=== PATIENT | male | born 1960 | race Caucasian/White ===

== ENCOUNTER → 2016-02-08 | Outpatient (CLI) | payer BC ==
[~2016-02-08] MED LIST: ASPIRIN325 M1 PO; BUFFERIN PO; CARVEDILOL 25MG25 MG PO; CLOPIDOGREL75 MG PO; FLONASE 50 MCG16 GM; GLIPIZIDE 5MG TA5 MG PO; LEVOTHYROXINE0.1 MG PO; LISINOPRIL 20MG20 MG PO; LISINOPRIL2.5 MG PO; LOSARTAN POTAS100 MG PO; METFORMIN500 MG PO; OMEPRAZOLE40 MG PO; PIOGLITAZONE HC30 MG PO; PRAVACHOL 40MG40 MG PO; QUALITY CHOICE PO; ZITHROMAX Z PA250 MG PO
--- NOTE | 2016-02-08 13:52 | RADIOLOGY REPORT PS360 ---
[facility] ([facility]) HISTORY: Right upper quadrant pain with nausea and vomiting, abnormal ultrasound RUQ PAIN DOSE: 8.47 mCi technetium Choletec 1.9 mcg of CCK. No pain reported with CCK infusion FINDINGS: Homogeneous activity is present within the hepatic parenchyma. Activity is present in the gallbladder by 10 minutes. Activity is present in the small bowel by 45 minutes. The gallbladder ejection fraction is calculated to be 99% The patient did not report pain or other symptoms during CCK infusion. IMPRESSION: Unremarkable hepatobiliary scan and gallbladder ejection fraction. No evidence of common or cystic duct obstruction with normal gallbladder ejection fraction
== END ==
LOC: RAD 08:30
DX: R10.11 Right upper quadrant pain (principal)
CPT/HCPCS: A9537; J2805

== ENCOUNTER 2016-04-11 16:33 | Emergency (ER) | payer BC ==
[~2016-04-11] VITALS: Ht 170.2 cm; Wt 90.7 kg
[~2016-04-11 16:33] MED LIST changes: -ASPIRIN325 M1 PO; -FLONASE 50 MCG16 GM; -ZITHROMAX Z PA250 MG PO
[2016-04-11] MEDS ORDERED: ASPIRIN325 M1 PO (16:42)
[2016-04-11] MEDS ORDERED: FLONASE 50 MCG16 GM (17:15)
[2016-04-11] MEDS ORDERED: ZITHROMAX Z PA250 MG PO (17:15)
--- NOTE | 2016-04-11 17:16 | Urgent Treatment Center Report ---
History of Present Issue Date/Time Seen by Provider 04/11/16 1650 Visit Reason Pt arrived:Walked Presenting Problem:PT STATES HE HAS BODY ACHES AND CHILLS, HEADACHE AND FEELS TERRIBLE. NASAL DRAINAGE. Location if Accident: Onset of symptoms date/time:/ or onset unknown for:MEDICAL HX UNKNOWN Have you (or family members/close friends) recently traveled outside the [place]? N If Yes, where/when: Have you had exposure to infectious disease within the past month? TB? Other? Specify: Patient states that he has not been feeling well having chills body aches and flu like symptoms. Having pain and pressure above his eyes and thinks he may have a sinus infection too. ALLERGIES Coded Allergies: No Known Allergies (01/12/16) Home Medications Reported Medications PIOGLITAZONE HCL (Pioglitazone Hcl 30MG Tablet) 30 MG PO DAILY Losartan Potassium (Losartan 100MG) 25 MG PO DAILY Omeprazole (Omeprazole 40MG) 40 MG PO DAILY CLOPIDOGREL BISULFATE (Clopidogrel 75MG) 75 MG PO DAILY LISINOPRIL (Lisinopril) 20 MG PO DAILY Glipizide (Glipizide 5MG) 5 MG PO DAILY LEVOTHYROXINE SOD (Synthroid) 25 MCG PO DAILY Carvedilol (Carvedilol 25MG) 25 MG PO BID PRAVASTATIN SODIUM (Pravastatin Sodium) 40 MG PO QHS LISINOPRIL (Lisinopril) 2.5 MG PO DAILY #30 TAB LISINOPRIL (Lisinopril) 2.5 MG PO DAILY #30 TAB Asa/Ca Carbonate/Mg Carbonat (Bufferin) 325 MG PO Metformin HCL (Metformin) 500 MG PO MULTIVIT WITH CALCIUM,IRON,MIN (Maximum Daily Multivitamin) 1 TAB PO Aspirin 325 MG PO DAILY History Medical History General CAD? No Angina: Yes [place]: Yes Hypertension? Yes Hyperlipidemia? Yes CHF? Yes DVT? No PE? No COPD? No Asthma? No Anemia? No GERD? No Gastric ulcers? No GI Bleed? No Hernia? No Thyroid Problems? No Hypothyroidism? No CVA? No Seizures? No Diabetes? Yes Insulin Dependent: No Insulin Pump: No Home FSBS? Yes Renal Insuffiency? No UTI? No Stones? No BPH? No GB Disease: No Nephritic Syndrome? No Asplenia? No Hepatitis? No Sickle Cell Disease? No Arthritis? No Migraines? No Cataracts? No Glaucoma? No MRSA? No HIV? No TB? No Anxiety? No Depression? No Cancer? No More? No Immunization HX DT/Tetanus 1-4 Years Ago Flu 2013-FSN Pneumonia Received In Past Surgical Hx Previous Surgery?Y CARDIAC STENTS X7 COLONOSCOPY DEFIBRILLATOR Family History Family HX Diabetes Yes CAD Yes Hypertension Yes Hyperlipidemia Yes Cancer Yes TB Yes Social History Smoking Hx Smoker: Never Smoker Tobacco: No Alcohol Alcohol: No Review of Systems All Other Systems Reviewed and Negative ENT nose discharge, nose congestion, throat pain. Respiratory cough Physical Exam Vital Signs Vital Signs Date Time Temp Pulse Resp B/P Pulse O2 O2 Flow FiO2 Ox Delivery Rate 04/11 1639 97.6 77 20 164/80 99 General Appearance Over all appears ill, swollen around eyes, Ear, Nose, Throat sinus pain/drainage, nasal congestion, throat slightly red, irritated Respiratory Status Yes: trachea midline, chest symmetrical, non tender chest. No: respiratory distress. 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 No Results/Orders Laboratory Tests 04/11/16 1647: Influenza Type A Ag NOT DETECTED, Influenza Type B Ag NOT DETECTED Orders Procedure Date/time Status [facility] FLU A,B 04/11 164 Complete Departure Departure Time of Disposition 1714 Disposition DC Home or Self Care(routine) Clinical Impression Primary Impression: Sinusitis Qualifiers: Sinusitis location: frontal Chronicity: unspecified Qualified Code: J32.1 - Chronic frontal sinusitis Condition STABLE Referrals ANJUM STALEY (Family) Patient Instructions DI for Sinusitis, Sinus Headache, Sinusitis Additional Instructions Drink plenty of fluids Take Medication as prescribed Follow up with family doctor Return if needed Discharge Counseling Counseled pt/family regarding diagnosis, test results, medications/RX, home care, follow up needs Prescriptions Current Visit Scripts Azithromycin (Zithromycin (Z-AARTI) 250MG Tab) 250 MG PO DAILY #6 TAB TAKE TWO (2) TABLETS ON DAY 1, THEN ONE (1) TABLET DAY #2 THRU #5 Fluticasone Propionate (Flonase 50 Mcg Nasal [place]) 2 SPRAY NA DAILY #1 BOT at 3319
[2016-04-11 17:19] VITALS: BP 164/80
== END 2016-04-11 17:19 | disposition home or self-care (01) ==
LOC: UTC 16:33
DX: J32.1 Chronic frontal sinusitis (principal); I10 Essential (primary) hypertension; E11.9 Type 2 diabetes mellitus without complications

== ENCOUNTER 2016-04-24 17:57 | Emergency (ER) | payer BC ==
[~2016-04-24] VITALS: Ht 170.2 cm; Wt 90.7 kg
[~2016-04-24 17:57] MED LIST changes: +ASPIRIN325 M1 PO; +FLONASE 50 MCG16 GM; +ZITHROMAX Z PA250 MG PO
--- NOTE | 2016-04-24 19:50 | Urgent Treatment Center Report ---
History of Present Issue Date/Time Seen by Provider 04/24/161935 Visit Reason Pt arrived:Walked Presenting Problem:PT C/O DIARRHEA SINCE SUNDAY THAT HAS LEFT HIM FEELING WEAK. PT STATES THAT HE WAS HAVING SOME VOMITING SUN BUT NONE NOW Location if Accident: Onset of symptoms date/time:/ or onset unknown for:MEDICAL HX UNKNOWN Have you (or family members/close friends) recently traveled outside the [place]? N If Yes, where/when: Have you had exposure to infectious disease within the past month? TB? Other? Specify: c/o continued diarrhea since Sunday, 3 days now. Started w/ N/V on Sunday then diarrhea started. N/V resolved within 24 hours. Fever and chills initially as well but that too resolved. Abdominal cramping prior to BMs but otherwise, no abdominal pain. Diarrhea "every 5 minutes", watery and eventually clear. pepto yesterday didn't help. Asked pharmacist and they recommended immodium. Took that yesterday and this morning. Frequency has slowed down "and getting brow color back to it". Abdominal cramping improving. Drinking water "a bottle each time I have poop" but hasn't been eating much. Hungry today. Ate hamburger "and kept it down". Feeling slightly weak today "but my mouth is wet and I have been checking my skin and it is good". No known sick contacts. Source patient Exam Limitations no limitations ALLERGIES Coded Allergies: No Known Allergies (04/24/16) Home Medications Active Scripts Azithromycin (Zithromycin (Z-AARTI) 250MG Tab) 250 MG PO DAILY #6 TAB Prov: 04/11/16 Fluticasone Propionate (Flonase 50 Mcg Nasal [place]) 2 SPRAY NA DAILY #1 BOT Prov: 04/11/16 Reported Medications PIOGLITAZONE HCL (Pioglitazone Hcl 30MG Tablet) 30 MG PO DAILY Losartan Potassium (Losartan 100MG) 25 MG PO DAILY Omeprazole (Omeprazole 40MG) 40 MG PO DAILY CLOPIDOGREL BISULFATE (Clopidogrel 75MG) 75 MG PO DAILY LISINOPRIL (Lisinopril) 20 MG PO DAILY Glipizide (Glipizide 5MG) 5 MG PO DAILY LEVOTHYROXINE SOD (Synthroid) 25 MCG PO DAILY Carvedilol (Carvedilol 25MG) 25 MG PO BID PRAVASTATIN SODIUM (Pravastatin Sodium) 40 MG PO QHS LISINOPRIL (Lisinopril) 2.5 MG PO DAILY #30 TAB LISINOPRIL (Lisinopril) 2.5 MG PO DAILY #30 TAB Asa/Ca Carbonate/Mg Carbonat (Bufferin) 325 MG PO Metformin HCL (Metformin) 500 MG PO MULTIVIT WITH CALCIUM,IRON,MIN (Maximum Daily Multivitamin) 1 TAB PO Aspirin 325 MG PO DAILY History Medical History General CAD? No Angina: Yes [place]: Yes Hypertension? Yes Hyperlipidemia? Yes CHF? Yes DVT? No PE? No COPD? No Asthma? No Anemia? No GERD? No Gastric ulcers? No GI Bleed? No Hernia? No Thyroid Problems? No Hypothyroidism? No CVA? No Seizures? No Diabetes? Yes Insulin Dependent: No Insulin Pump: No Home FSBS? Yes Renal Insuffiency? No UTI? No Stones? No BPH? No GB Disease: No Nephritic Syndrome? No Asplenia? No Hepatitis? No Sickle Cell Disease? No Arthritis? No Migraines? No Cataracts? No Glaucoma? No MRSA? No HIV? No TB? No Anxiety? No Depression? No Cancer? No More? No Immunization HX DT/Tetanus 1-4 Years Ago Flu 2013-15FSN Pneumonia Received In Past Surgical Hx Previous Surgery?Y CARDIAC STENTS X7 COLONOSCOPY DEFIBRILLATOR Family History Family HX Diabetes Yes CAD Yes Hypertension Yes Hyperlipidemia Yes Cancer Yes TB Yes Social History Smoking Hx Smoker: Former Smoker Tobacco: Yes Type Cigarettes Alcohol Alcohol: No Review of Systems All Other Systems Reviewed and Negative Constitutional see HPI ENT denies: throat pain. Respiratory denies shortness of breath Cardiovascular denies chest pain, denies palpitations Gastrointestinal see HPI Genitourinary denies: dysuria. Musculoskeletal denies other (cramping) Skin denies change in color, denies dryness Psychiatric/Neurological denies headache Physical Exam Vital Signs Vital Signs Date Time Temp Pulse Resp B/P Pulse O2 O2 Flow FiO2 Ox Delivery Rate 04/24 1814 97.9 96 20 126/79 100 General Appearance normal appearance, no apparent distress Ear, Nose, Throat normal ENT inspection Respiratory Status No: respiratory distress. Lung Sounds anterior: lungs clear. posterior: lungs clear. bilateral: lungs clear. Cardiovascular regular rate/rhythm, no murmur Gastrointestinal non tender, soft, no organomegaly, abnormal bowel sounds ( hyperactive), protuberant Back no CVA tenderness Strength 5 Upper Ext (L), 5 Upper Ext (R), 5 Lower Ext (L), 5 Lower Ext (R) Neurologic alert Skin normal color, warm/dry, moist Medical Decision Making LABS/Meds/Orders Pt receiving controlled substance in ED? No Progress [facility] Progress Notes Date 04/24/16 Comment refused waiting for labs for further evaluation of hydration and/or electrolytes Departure Departure Time of Disposition 1943 Disposition DC Home or Self Care(routine) Clinical Impression Primary Impression: Viral gastroenteritis Condition STABLE Referrals ANJUM STALEY (Family) Follow up immediately for new or worsening symptoms OR no noticeable improvement over the next 48 hours. Patient Instructions DI for Viral Gastroenteritis -- Adult Additional Instructions Suggested labs to check electrolytes, hydration and kidney function. Pt declined. "Already been here too long" Continue increased fluids Start to slowly add back in food. Not heavy foods like burgers. Try bland foods like bananas, rice, applesauce, toast. Start PROBIOTIC to help restore healthy gut bacteria. Ask pharmacist if you can' t find this over the counter. Return immediate for new or worsening symptoms or no continued improvement over next 48 hours. Caution against pepto and immodium. Typically once it wears off, diarrhea will return until virus has resolved. Discharge Counseling Counseled pt/family regarding diagnosis, medications/RX, home care, follow up needs at 2001
[2016-04-24 19:53] VITALS: BP 126/79
== END 2016-04-24 19:53 | disposition home or self-care (01) ==
LOC: UTC 17:57
DX: A08.4 Viral intestinal infection, unspecified (principal); I10 Essential (primary) hypertension; E11.9 Type 2 diabetes mellitus without complications

== ENCOUNTER → 2017-01-05 | Outpatient (CLI) | payer BC ==
[2017-01-05 12:33] LABS: LYMPH # 2.1 K/mm3 (0.7-4.5); LYMPH % 29.9 % (10-50)
[2017-01-05 12:35] LABS: HEMOGLOBIN 12.2 g/dL (14.1-18.0)
[2017-01-05 14:45] LABS: BUN 14 mg/dL (7-18)
[2017-01-05 14:47] LABS: GFR (ESTIMATED) 87 ML/MIN (>60)
== END ==
LOC: LAB 12:14
PROVIDERS: Nurse Practitioner Family
DX: R53.83 Other fatigue (principal); E55.9 Vitamin D deficiency, unspecified; Z79.899 Other long term (current) drug therapy